=== PATIENT | female | born 1970 | race Caucasian/White ===

== ENCOUNTER 2021-08-21 01:15 | Day surgery (SDC) | payer BC, SELFPAY ==
[2021-08-09 14:49] VITALS: BMI 17.9
[2021-08-21 06:54] VITALS: BP 113/76; PULSE 96; RESP 18; TEMP 37.1; O2SAT 100
[2021-08-21] MEDS: LACTATED RINGERS 1,000 ML 150 ML IV CONT (07:04)
--- NOTE | 2021-08-21 07:57 | WPDANESEPPF ---
Anes - Initial Pre Proc Eval Procedure: Operation Date: 08/21/21 08:00 Proposed Procedures p Screening Colonoscopy - Jered Sawyer MD Date/Time: 08/21/21 07:57 Surgeon: Jered Sawyer MD Pre Op Diagnosis: neoplasm screening Patient Data Age: 51 Gender: F Height: 1.7 m Weight: 52.5 kg Last Vital Signs Temp 98.7 F 08/21/21 06:54 Pulse 96 08/21/21 06:54 Resp 18 08/21/21 06:54 BP 113/76 08/21/21 06:54 Pulse Ox 100 08/21/21 06:54 Allergies Allergy/AdvReac Type Severity Reaction Status Date / Time No Known Allergies Allergy Verified 08/21/21 06:53 Home Medications Medication Instructions Recorded Confirmed Type cyclobenzaprine 5 mg tablet See Rx Instructions .ROUTE 03/26/21 08/09/21 Rx .COMPLEX #60 tablet Adult One Daily Multivitamin 1 mg PO DAILY 08/09/21 08/21/21 History polyethylene glycol 3350 [Miralax] 17 g PO DAILY 08/09/21 08/09/21 History Patient hx anesthesia problems: none Family hx anesthesia problems: none Results Review: All pre-operative results and documents have been reviewed as part of the pre-operative evaluation. [facility] Family History Family History Mother Diabetes mellitus Grandparent Family history of malignant neoplasm of breast Other Carcinoma of colon Family history of allergic disorder Family history of cardiovascular disease Family history of elevated blood lipids Hypertension Social History Social History Years smoked: 20 Smoking status: Current every day smoker Tobacco type: cigarettes Smoking end date: 07/28/12 Alcohol intake: current Drinks per week: 7 Living arrangements: with family Spiritual care concerns: No Anes - Eval Final PreProcedure Day of Procedure 08/21/21 07:57 Patient weight: normal Heart: regular rate and rhythm Lungs: clear to auscultation Airway: Mallampati scale class II Neurological: alert and oriented Last oral intake: >/= 8 hours ASA classification: II Emergent: no Anesthetic plan: proceed Anesthesia type and monitoring: general and standard monitoring Results Review: All pre-operative results and documents have been reviewed as part of the pre-operative evaluation. Informed Consent: The patient's anesthetic plan and its attendant risks and benefits were discussed with the patient/family/POA. Questions were solicited and answers provided to the satisfaction of the patient/family/POA.
--- NOTE | 2021-08-21 08:00 | WPDGICN ---
Assessment and Plan Assessment and plan (1) Family history of colon cancer in mother: Code(s): Z80.0 - Family history of malignant neoplasm of digestive organs Status: Acute Assessment and Plan: Patient has family history of colon cancer in her mother. Her father may have had colon polyps. Neoplasia screening advised now and should be considered at 5 year intervals in the future. GI Consult Note Consult date/time: 08/21/21 08:00 HPI: Nico Hogan is a 51 year old female Presents for screening colonoscopy. Patient's current weight appetite and bowel movements are normal. She denies abdominal pain. She has had no bleeding. Family history is significant that her mother had colon cancer. Her father may have had colon polyps. Review of Systems Review of Systems: All systems reviewed & are unremarkable except as noted in HPI and below PMFSH Family History Family History Mother Diabetes mellitus Grandparent Family history of malignant neoplasm of breast Other Carcinoma of colon Family history of allergic disorder Family history of cardiovascular disease Family history of elevated blood lipids Hypertension Social History Social History Years smoked: 20 Smoking status: Current every day smoker Tobacco type: cigarettes Smoking end date: 07/28/12 Alcohol intake: current Drinks per week: 7 Living arrangements: with family Spiritual care concerns: No Meds Home Medications and Allergies Home Medications Medication Instructions Recorded Confirmed Type cyclobenzaprine 5 mg tablet See Rx Instructions .ROUTE 03/26/21 08/09/21 Rx .COMPLEX #60 tablet Adult One Daily Multivitamin 1 mg PO DAILY 08/09/21 08/21/21 History polyethylene glycol 3350 [Miralax] 17 g PO DAILY 08/09/21 08/09/21 History Allergies Allergy/AdvReac Type Severity Reaction Status Date / Time No Known Allergies Allergy Verified 08/21/21 06:53 Vital Signs Vital Signs - 24 hr 08/21/21 06:54 Temperature 98.7 F Pulse Rate 96 Respiratory Rate 18 Blood Pressure 113/76 Pulse Oximetry 100 Exam Narrative: Physical exam reveals patient to be alert. Vital signs stable. HEENT exam is unremarkable. Patient is anicteric. Lungs are clear to auscultation and percussion. Heart is without murmur or extra sounds. Abdominal exam bowel sounds are present soft nontender with no hepatosplenomegaly. Digital external rectal exam is normal.
[2021-08-21 08:26] VITALS: BP 107/63; PULSE 79; RESP 20; O2SAT 100
[2021-08-21 08:36] VITALS: BP 105/62; PULSE 82; RESP 22; O2SAT 100
[2021-08-21 08:46] VITALS: BP 114/71; PULSE 70; RESP 19; O2SAT 100
== END 2021-08-21 08:54 | disposition home or self-care (01) ==
PROVIDERS: PCP Family Medicine; Visit Provider Internal Medicine Gastroenterology
PROC: 0DJD8ZZ Inspection of Lower Intestinal Tract, Via Natural or Artificial Opening Endoscopic (ICD-10-PCS; CPT 45378; principal; 2021-08-21 08:00)
DX: Z12.11 Encounter for screening for malignant neoplasm of colon (principal); K64.8 Other hemorrhoids; Z80.0 Family history of malignant neoplasm of digestive organs; F17.210 Nicotine dependence, cigarettes, uncomplicated
CPT/HCPCS: 45378; J2704; J7120